=== PATIENT | female | born 1990 | race African-American/Black ===

== ENCOUNTER 2021-10-03 07:38 | Inpatient (IN) | payer MEDICAID ==
[~2021-10-03] VITALS: Ht 152.4 cm; Wt 54.4 kg
[2021-10-03] MEDS ORDERED: LABETALOL HCL 5MG/ML VIAL 20ML IV PRN ×3 (08:30)
[2021-10-03] MEDS ORDERED: HYDRALAZINE 20MG/ML VIAL IV PRN (08:30)
[2021-10-03] MEDS ORDERED: MAGNESIUM 4 G PREMIX 100 ML IV ONE (08:45)
[2021-10-03] MEDS ORDERED: LABETALOL HCL 5MG/ML VIAL 20ML IV ONE (08:49)
[2021-10-03] MEDS ORDERED: WATER IV ONE (08:49)
[2021-10-03] MEDS ORDERED: MAGNESIUM SULFATE IV ONE (08:49)
[2021-10-03] MEDS: MAGNESIUM 20 G PREMIX (L & D) 500 ML IV SCH ×3 (09:00→16:57)
[2021-10-03] MEDS: BETAMETHASONE ACET/BETAMET 30 MG/5 ML VIAL IM NR (09:06)
[2021-10-03] MEDS: AMPICILLIN 2,000 MG in SODIUM CHLORIDE 0.9% 100 ML IV SCH ×3 (09:07→23:07)
[2021-10-03 09:10] LABS: BASOPHILS % 0.7 % (0.0-2.0); EOSINOPHILS % 0.2 % (0.0-5.0); HEMATOCRIT. 33.9 % (36.0-48.0); HEMOGLOBIN. 11.2 g/dL (12.0-16.0); MEAN CORPUSCULAR HEMOGLOBIN 27.6 pg (28.0-32.0); MEAN CORPUSCULAR VOLUME 83.1 fL (81.0-99.0); MEAN PLATELET VOLUME 8.7 fl (7.4-10.4); MONOCYTES % 9.9 % (2.0-8.0); NEUTROPHILS % 56.2 % (40.0-76.0); PLATELET 315 x1000/uL (130-400); RED BLOOD CELL COUNT 4.07 mill/uL (4.2-5.4); RED CELL DISTRIBUTION WIDTH 14.1 % (11.6-14.6)
[2021-10-03 09:16] LABS: CHLORIDE 109 mEq/L (98-107)
[2021-10-03 09:22] LABS: D-DIMER 3.09 mg/L FEU (<0.50); INR 0.8; PARTIAL THROMBOPLASTIN TIME 28.2 sec (23.4-31.0); PROTHROMBIN TIME 9.2 sec (9.6-11.0)
[2021-10-03 09:42] LABS: CLARITY URINE CLOUDY (CLEAR); COLOR URINE YELLOW (YELLOW); KETONES URINE NEGATIVE (NEGATIVE); LEUKOCYTE ESTERASE URINE 2+ (NEGATIVE); NITRITE URINE NEGATIVE (NEGATIVE); OCCULT BLOOD URINE 2+ (NEGATIVE); PH URINE 7.5 (4.5-8.0); PROTEIN URINE 4+ (NEGATIVE); SPECIFIC GRAVITY URINE 1.015 (1.005-1.030); UROBILINOGEN URINE 0.2 E.U./dL (0.2-1.0)
[2021-10-03 09:56] LABS: CANNABINOID URINE SCREEN NEGATIVE (NEGATIVE); OPIATES URINE SCREEN NEGATIVE (NEGATIVE)
[2021-10-03 09:57] LABS: *AMPHETAMINES SCREEN URINE NEGATIVE (NEGATIVE); *BARBITURATES SCREEN URINE NEGATIVE (NEGATIVE); *BENZODIAZEPINES SCREEN URINE NEGATIVE (NEGATIVE); *COCAINE SCREEN URINE NEGATIVE (NEGATIVE); METHADONE URINE SCREEN NEGATIVE (NEGATIVE); PHENCYCLIDINE URINE SCREEN NEGATIVE (NEGATIVE)
[2021-10-03 14:32] LABS: HEPATITIS B SURFACE ANTIGEN NEGATIVE
[2021-10-03] MEDS: LACTATED RINGERS 1,000 ML IV SCH (16:50)
[2021-10-04] MEDS: AMPICILLIN 2,000 MG in SODIUM CHLORIDE 0.9% 100 ML IV SCH ×4 (05:02→22:59)
[2021-10-04] MEDS: LACTATED RINGERS 1,000 ML IV SCH ×2 (05:04→16:40)
[2021-10-04 07:20] LABS: CLARITY URINE CLEAR (CLEAR); COLOR URINE YELLOW (YELLOW); KETONES URINE NEGATIVE (NEGATIVE); LEUKOCYTE ESTERASE URINE NEGATIVE (NEGATIVE); NITRITE URINE NEGATIVE (NEGATIVE); OCCULT BLOOD URINE 1+ (NEGATIVE); PH URINE 7.5 (4.5-8.0); PROTEIN URINE 3+ (NEGATIVE); SPECIFIC GRAVITY URINE 1.015 (1.005-1.030); UROBILINOGEN URINE 0.2 E.U./dL (0.2-1.0)
[2021-10-04 07:25] LABS: INR 0.8; PARTIAL THROMBOPLASTIN TIME 26.4 sec (23.4-31.0); PROTHROMBIN TIME 9.1 sec (9.6-11.0)
[2021-10-04 07:26] LABS: BASOPHILS % 0.2 % (0.0-2.0); HEMATOCRIT. 33.7 % (36.0-48.0); HEMOGLOBIN. 11.3 g/dL (12.0-16.0); LYMPHOCYTES % 12.2 % (20.0-50.0); MEAN CORPUSCULAR VOLUME 83.3 fL (81.0-99.0); MEAN PLATELET VOLUME 8.5 fl (7.4-10.4); MONOCYTES % 7.2 % (2.0-8.0); NEUTROPHILS % 80.4 % (40.0-76.0); PLATELET 300 x1000/uL (130-400); RED BLOOD CELL COUNT 4.05 mill/uL (4.2-5.4); RED CELL DISTRIBUTION WIDTH 14.3 % (11.6-14.6)
[2021-10-04 07:28] LABS: CHLORIDE 103 mEq/L (98-107)
[2021-10-04] MEDS ORDERED: LABETALOL HCL 200MG TABLET PO NR (09:07)
[2021-10-04] MEDS: BETAMETHASONE ACET/BETAMET 30 MG/5 ML VIAL IM NR (09:14)
[2021-10-04] MEDS ORDERED: NIFEDIPINE 10MG CAPSULE PO NR (10:30)
[2021-10-04] MEDS ORDERED: SODIUM CHLORIDE 0.9% 500 ML IV ONE (12:00)
[2021-10-04] MEDS: MAGNESIUM 20 G PREMIX (L & D) 500 ML IV SCH (13:22)
[2021-10-04] MEDS ORDERED: LABETALOL HCL 200MG TABLET PO SCH (21:00)
[2021-10-05] MEDS: LACTATED RINGERS 1,000 ML IV SCH ×2 (03:35→14:14)
[2021-10-05] MEDS: LABETALOL HCL 200MG TABLET PO SCH ×3 (04:00→19:52)
[2021-10-05] MEDS: AMPICILLIN 2,000 MG in SODIUM CHLORIDE 0.9% 100 ML IV SCH ×4 (05:00→22:21)
[2021-10-05] MEDS ORDERED: LABETALOL HCL 200MG TABLET PO SCH (06:00)
[2021-10-05] MEDS ORDERED: AZITHROMYCIN 500 MG TABLET PO SCH (09:30)
[2021-10-05 10:07] LABS: BASOPHILS % 0.1 % (0.0-2.0); HEMATOCRIT. 31.9 % (36.0-48.0); HEMOGLOBIN. 10.6 g/dL (12.0-16.0); LYMPHOCYTES % 11.5 % (20.0-50.0); MEAN CORPUSCULAR HEMOGLOBIN 27.9 pg (28.0-32.0); MEAN CORPUSCULAR VOLUME 83.8 fL (81.0-99.0); MEAN PLATELET VOLUME 8.2 fl (7.4-10.4); MONOCYTES % 4.3 % (2.0-8.0); NEUTROPHILS % 84.1 % (40.0-76.0); PLATELET 266 x1000/uL (130-400); RED BLOOD CELL COUNT 3.81 mill/uL (4.2-5.4); RED CELL DISTRIBUTION WIDTH 14.4 % (11.6-14.6)
[2021-10-05 10:15] LABS: CHLORIDE 105 mEq/L (98-107)
[2021-10-05] MEDS: MAGNESIUM 20 G PREMIX (L & D) 500 ML IV SCH (14:01)
[2021-10-05] MEDS: DOCUSATE SODIUM 100MG CAPSULE PO SCH (19:56)
[2021-10-06] MEDS: LACTATED RINGERS 1,000 ML IV SCH ×3 (02:53→23:12)
[2021-10-06] MEDS ORDERED: NIFEDIPINE 10MG CAPSULE PO NR ×2 (03:15→18:45)
[2021-10-06] MEDS: AMPICILLIN 2,000 MG in SODIUM CHLORIDE 0.9% 100 ML IV SCH ×4 (05:02→23:03)
[2021-10-06] MEDS: MAGNESIUM 20 G PREMIX (L & D) 500 ML IV SCH (08:57)
[2021-10-06] MEDS: LABETALOL HCL 200MG TABLET PO SCH ×3 (10:02→22:00)
[2021-10-06] MEDS: DOCUSATE SODIUM 100MG CAPSULE PO SCH (23:12)
[2021-10-07] MEDS: LABETALOL HCL 200MG TABLET PO SCH ×4 (02:12→18:53)
[2021-10-07] MEDS: AMPICILLIN 2,000 MG in SODIUM CHLORIDE 0.9% 100 ML IV SCH ×3 (05:06→17:12)
[2021-10-07] MEDS: LACTATED RINGERS 1,000 ML IV SCH ×2 (06:34→15:18)
[2021-10-07 11:01] LABS: BASOPHILS % 0.5 % (0.0-2.0); EOSINOPHILS % 0.1 % (0.0-5.0); HEMATOCRIT. 30.7 % (36.0-48.0); HEMOGLOBIN. 10.2 g/dL (12.0-16.0); MEAN CORPUSCULAR HEMOGLOBIN 27.8 pg (28.0-32.0); MEAN CORPUSCULAR VOLUME 83.5 fL (81.0-99.0); MEAN PLATELET VOLUME 8.3 fl (7.4-10.4); MONOCYTES % 8.8 % (2.0-8.0); NEUTROPHILS % 66.6 % (40.0-76.0); PLATELET 198 x1000/uL (130-400); RED BLOOD CELL COUNT 3.68 mill/uL (4.2-5.4); RED CELL DISTRIBUTION WIDTH 14.5 % (11.6-14.6)
[2021-10-07 11:02] LABS: CLARITY URINE CLEAR (CLEAR); COLOR URINE YELLOW (YELLOW); KETONES URINE NEGATIVE (NEGATIVE); LEUKOCYTE ESTERASE URINE NEGATIVE (NEGATIVE); NITRITE URINE NEGATIVE (NEGATIVE); OCCULT BLOOD URINE TRACE (NEGATIVE); PH URINE 7.5 (4.5-8.0); PROTEIN URINE 4+ (NEGATIVE); SPECIFIC GRAVITY URINE 1.015 (1.005-1.030); UROBILINOGEN URINE 0.2 E.U./dL (0.2-1.0)
[2021-10-07 11:09] LABS: CHLORIDE 106 mEq/L (98-107)
[2021-10-07 11:19] LABS: D-DIMER 4.58 mg/L FEU (<0.50); FIBRINOGEN 423 mg/dL (200-400); PARTIAL THROMBOPLASTIN TIME 25.8 sec (23.4-31.0)
[2021-10-07 11:34] LABS: PROTHROMBIN TIME < 9.0 sec (9.6-11.0)
[2021-10-07 11:40] LABS: INR < 0.9
[2021-10-07] MEDS ORDERED: DEXT 5%/LR + PITOCIN 20UNITS/L 1,000 ML IV SCH (13:15)
[2021-10-07] MEDS ORDERED: MISOPROSTOL 200MCG TABLET VG PRN (13:15)
[2021-10-07] MEDS ORDERED: METHYLERGONOVINE MALEATE 0.2 MG/ML IM PRN (13:15)
[2021-10-07] MEDS ORDERED: BUTORPHANOL TARTRATE 2 MG/ML VIAL IV PRN (13:15)
[2021-10-07] MEDS ORDERED: LIDOCAINE HCL 1% 20ML VIAL (Pyxis) INJ INFIL SCH (13:15)
[2021-10-07] MEDS ORDERED: HYDRALAZINE 20MG/ML VIAL IV PRN (15:45)
[2021-10-07] MEDS ORDERED: LABETALOL HCL 5MG/ML VIAL 20ML IV PRN ×2 (15:45)
[2021-10-07] MEDS: LABETALOL HCL 5MG/ML VIAL 20ML IV PRN ×2 (15:57→16:22)
[2021-10-07] MEDS: MAGNESIUM 20 G PREMIX (L & D) 500 ML IV SCH (20:42)
[2021-10-07] MEDS ORDERED: HYDRALAZINE 20MG/ML VIAL IV NR (21:30)
[2021-10-07] MEDS ORDERED: DIPHENHYDRAMINE 25MG CAPSULE PO PRN (22:15)
[2021-10-07] MEDS ORDERED: LANOLIN OINT 7GM TUBE TOP PRN (22:15)
[2021-10-07] MEDS ORDERED: BISACODYL 10MG SUPP PR PRN (22:15)
[2021-10-07] MEDS ORDERED: IBUPROFEN 800MG TABLET PO PRN (22:15)
[2021-10-07] MEDS ORDERED: IBUPROFEN 400MG TABLET PO PRN (22:15)
[2021-10-07] MEDS ORDERED: HEMORRHOIDAL SUPP PR PRN (22:15)
[2021-10-07] MEDS ORDERED: GLYCERIN/WITCH HAZEL LEAF MEDICATED PAD TOP PRN (22:15)
[2021-10-07] MEDS ORDERED: RHO(D) IMMUNE GLOBULIN 300 MCG/SYR IM PRN (22:15)
[2021-10-07] MEDS ORDERED: BENZOCAINE/LANOLIN/ALOE VERA SPRAY TOP PRN (22:15)
[2021-10-07] MEDS ORDERED: ACETAMINOPHEN WITH CODEINE 300/30MG TABLET PO PRN (22:15)
[2021-10-07] MEDS ORDERED: MAGNESIUM 20 G PREMIX (L & D) 500 ML IV SCH (22:15)
[2021-10-08] VITALS (10 sets, daily range): BP systolic 140–168; BP diastolic 91–107
[2021-10-08] MEDS: DEXT 5%/LR + PITOCIN 20UNITS/L 1,000 ML IV SCH ×2 (00:21→11:03)
[2021-10-08] MEDS ORDERED: LABETALOL HCL 200MG TABLET PO SCH (06:00)
[2021-10-08] MEDS: LABETALOL HCL 200MG TABLET PO SCH (06:06)
[2021-10-08] MEDS: MAGNESIUM 20 G PREMIX (L & D) 500 ML IV SCH ×2 (06:30→11:07)
[2021-10-08 08:17] LABS: BASOPHILS % 0.4 % (0.0-2.0); EOSINOPHILS % 0.2 % (0.0-5.0); LYMPHOCYTES % 8.5 % (20.0-50.0); MEAN CORPUSCULAR HEMOGLOBIN 27.4 pg (28.0-32.0); MEAN CORPUSCULAR VOLUME 83.1 fL (81.0-99.0); MEAN PLATELET VOLUME 9.3 fl (7.4-10.4); NEUTROPHILS % 85.9 % (40.0-76.0); PLATELET 205 x1000/uL (130-400); RED BLOOD CELL COUNT 4.29 mill/uL (4.2-5.4); RED CELL DISTRIBUTION WIDTH 14.3 % (11.6-14.6)
[2021-10-08 08:29] LABS: HEMATOCRIT. 35.7 % (36.0-48.0); HEMOGLOBIN. 11.8 g/dL (12.0-16.0)
[2021-10-08] MEDS: MAGNESIUM/ALUMINUM HYDROXIDE/SIMETHICONE 30ML UDC PO SCH ×4 (08:55→23:07)
[2021-10-08] MEDS: FERROUS SULFATE 325MG TABLET PO SCH ×3 (08:55→17:17)
[2021-10-08] MEDS: PRENATAL VIT/FE FUMARATE/FA TABLET PO SCH (08:55)
[2021-10-08] MEDS: SIMETHICONE 80MG TABLET CHEW PO SCH ×4 (08:55→23:07)
[2021-10-08] MEDS: LABETALOL HCL 300MG TABLET PO SCH (23:07)
[2021-10-08] MEDS: DOCUSATE SODIUM 100MG CAPSULE PO SCH (23:07)
[2021-10-09] VITALS: BP 150/98
[2021-10-09 04:00] VITALS: BP 122/84
[2021-10-09] MEDS: LABETALOL HCL 300MG TABLET PO SCH ×3 (05:58→17:01)
[2021-10-09] MEDS ORDERED: SODIUM CHLORIDE 0.9% 500 ML IV ONE (06:00)
[2021-10-09 07:30] VITALS: BP 123/89
[2021-10-09] MEDS: MAGNESIUM/ALUMINUM HYDROXIDE/SIMETHICONE 30ML UDC PO SCH ×4 (07:30→21:00)
[2021-10-09 07:48] LABS: BASOPHILS % 0.3 % (0.0-2.0); EOSINOPHILS % 0.6 % (0.0-5.0); HEMATOCRIT. 29.2 % (36.0-48.0); LYMPHOCYTES % 13.2 % (20.0-50.0); MEAN CORPUSCULAR HEMOGLOBIN 28.3 pg (28.0-32.0); MEAN CORPUSCULAR VOLUME 82.9 fL (81.0-99.0); MEAN PLATELET VOLUME 9.1 fl (7.4-10.4); MONOCYTES % 5.3 % (2.0-8.0); NEUTROPHILS % 80.6 % (40.0-76.0); PLATELET 171 x1000/uL (130-400); RED BLOOD CELL COUNT 3.52 mill/uL (4.2-5.4); RED CELL DISTRIBUTION WIDTH 14.6 % (11.6-14.6)
[2021-10-09] MEDS: SIMETHICONE 80MG TABLET CHEW PO SCH ×4 (08:00→21:00)
[2021-10-09] MEDS: PRENATAL VIT/FE FUMARATE/FA TABLET PO SCH (09:11)
[2021-10-09] MEDS: FERROUS SULFATE 325MG TABLET PO SCH ×3 (09:11→17:30)
[2021-10-09 11:52] LABS: CHLORIDE 103 mEq/L (98-107)
[2021-10-09 12:08] LABS: BASOPHILS % 0.3 % (0.0-2.0); EOSINOPHILS % 0.8 % (0.0-5.0); HEMATOCRIT. 29.1 % (36.0-48.0); HEMOGLOBIN. 9.7 g/dL (12.0-16.0); LYMPHOCYTES % 15.3 % (20.0-50.0); MEAN CORPUSCULAR HEMOGLOBIN 27.7 pg (28.0-32.0); MEAN CORPUSCULAR VOLUME 82.8 fL (81.0-99.0); MEAN PLATELET VOLUME 9.4 fl (7.4-10.4); MONOCYTES % 5.7 % (2.0-8.0); NEUTROPHILS % 77.9 % (40.0-76.0); PLATELET 169 x1000/uL (130-400); RED BLOOD CELL COUNT 3.51 mill/uL (4.2-5.4); RED CELL DISTRIBUTION WIDTH 14.3 % (11.6-14.6)
[2021-10-09 16:03] VITALS: BP 158/91
[2021-10-09 16:43] VITALS: BP 169/103
[2021-10-09 20:00] VITALS: BP 127/92
[2021-10-09] MEDS: DOCUSATE SODIUM 100MG CAPSULE PO SCH (21:00)
[2021-10-10] VITALS (8 sets, daily range): BP systolic 92–157; BP diastolic 56–105
[2021-10-10] MEDS: LABETALOL HCL 300MG TABLET PO SCH ×4 (01:09→21:58)
[2021-10-10] MEDS ORDERED: DIPHENHYDRAMINE 25MG CAPSULE PO NR (08:00)
[2021-10-10] MEDS ORDERED: NIFEDIPINE 10MG CAPSULE PO NR (17:30)
[2021-10-11] MEDS ORDERED: MULT-1146 MT (04:15)
[2021-10-11] MEDS ORDERED: IBUP-2030 MT (04:15)
[2021-10-11] MEDS ORDERED: LABE300T3 PO (04:15)
[2021-10-11] MEDS ORDERED: FERR325T6 MT (04:15)
[2021-10-11] MEDS ORDERED: NORE0.3520 MT (04:15)
[2021-10-11] MEDS: LABETALOL HCL 300MG TABLET PO SCH (05:59)
[2021-10-11 06:00] VITALS: BP 145/93
[2021-10-11 07:52] VITALS: BP 133/72
== END 2021-10-11 13:14 | disposition home or self-care (01) | DRG 560 ==
LOC: OBSVTOIN 07:38 → 8 EST LDRP 07:38 → 8EST 10-08 03:30
PROVIDERS: ADMIT Obstetrics & Gynecology; ATTEND Obstetrics & Gynecology
PROC: 10E0XZZ Delivery of Products of Conception, External Approach (ICD-10-PCS; principal; 2021-10-07)
PROC: 3E0R3BZ Introduction of Anesthetic Agent into Spinal Canal, Percutaneous Approach (ICD-10-PCS; 2021-10-07)
PROC: 00HU33Z Insertion of Infusion Device into Spinal Canal, Percutaneous Approach (ICD-10-PCS; 2021-10-07)
DX: O14.14 Severe pre-eclampsia complicating childbirth (principal); Z37.0 Single live birth; O60.14X0 Preterm labor third trimester with preterm delivery third trimester, not applicable or unspecified; O36.5930 Maternal care for other known or suspected poor fetal growth, third trimester, not applicable or unspecified; B06.9 Rubella without complication; O98.52 Other viral diseases complicating childbirth; O13.4 Gestational [pregnancy-induced] hypertension without significant proteinuria, complicating childbirth; O99.02 Anemia complicating childbirth; D64.9 Anemia, unspecified; Z20.822 Contact with and (suspected) exposure to COVID-19; Z3A.33 33 weeks gestation of pregnancy
CPT/HCPCS: 36415; 76805; 76818; 80048; 80051; 80053; 80305; 81003; 83735; 84450; 84460; 84550; 85025; 85379; 85384; 86592; 86703; 86762; 86850; 86900; 87340; 87426; 96360; 99281; J0290; J0360; J0595; J0702; J2590; J3475; J3490; J7040; J7050; J7120; Q0163; A4315